=== PATIENT | female | born 1940 | race Caucasian/White ===

== ENCOUNTER 2018-08-05 11:40 | Inpatient (IN) ==
--- NOTE | 2018-08-05 11:56 | Emergency Department Note ---
Disposition Clinical Impression: NSTEMI (non-ST elevated myocardial infarction) Chest pain Qualifiers: Chest pain type: unspecified Qualified Code(s): R07.9 - Chest pain, unspecified Dyspnea Qualifiers: Dyspnea type: unspecified Qualified Code(s): R06.00 - Dyspnea, unspecified Disposition: Admitted As Inpatient Condition: Good Referrals: Michelle Parekh DO [Primary Care Provider] - Forms: ED Satisfaction Letter Time of Disposition: 16:48 Chest Pain HPI - General Chief Complaint: ED Chest Pain Stated Complaint: Chest tightness,TONY Time Seen by Provider: 08/05/18 11:56 Source: patient Mode of arrival: ambulatory Limitations: no limitations Vital Signs Reviewed: Yes Nursing Notes Reviewed: Yes - History of Present Illness HPI Narrative: Patient is a 77-year-old female with past medical history of breast cancer, currently taking exemestane 25mg which is a new location for her. She is not currently on any other chemotherapy or radiation therapy. She has history of hy pertension. Denies any previous cardiac history, stent placement, previous DVT or PE. She presents today due to concern for chest tightness and shortness of breath. She states that this started yesterday, was present when she woke from sleep. Rates it a 5 out of 10, chest tightness across her entire chest. She admits to cough but no productive sputum. Denies any other fevers, nausea, vomiting, abdominal pain, dysuria, hematuria. She did admit to some swelling last night. She is concerned that this could be related to the new cancer medication that she started within the past few days. However, she states that she called her oncology office and they told this should not be causing her shortness of breath and referred her to the ER for further care. She did not take any aspirin or nitroglycerin prior to coming in. Severity scale (1-10): 5 - Related Data Home Medications Medication Instructions Recorded Confirmed Aspirin [Lo-Dose Aspirin EC] 81 mg PO DAILY 02/11/15 02/02/17 Atenolol [Tenormin] 25 mg PO DAILY 02/11/15 02/02/17 Omeprazole [PriLOSEC] 20 mg PO DAILY 02/11/15 02/02/17 hydroCHLOROthiazide 12.5 mg PO DAILY 02/11/15 02/02/17 [Hydrochlorothiazide] Vitamin B Complex [B Complex] 1 each PO DAILY 09/09/15 02/02/17 Previous Rx's Medication Instructions Recorded Albuterol Sulfate [Albuterol 2 puff IH QID 2 Days inhaler 09/09/15 Inhaler] Loratadine [Allergy Relief] 10 mg PO DAILY #30 tablet 11/14/16 Amoxicillin 875 mg PO BID #14 tablet 02/02/17 Fluticasone Propionate Nasal 120 spray NS DAILY #1 bottle 02/02/17 [Flonase] Allergies Allergy/AdvReac Type Severity Reaction Status Date / Time Iodinated Contrast- Oral and Allergy Unconscious Verified 08/05/18 13:55 IV Dye sodium pentatnol Allergy Anaphylaxis Uncoded 04/12/17 15:02 All systems ED: reviewed and negative except as stated. Constitutional: Denies: fever Cardiovascular: Reports: chest pain Respiratory: Reports: cough, dyspnea. Denies: wheezes, sputum production Gastrointestinal: Denies: abdominal pain, nausea, vomiting, diarrhea, constipation Integumentary: Denies: rash Neurological: Denies: headache, weakness, numbness, paresthesias Chest Pain PMH - Past Medical History Medical history: Reports: cancer, GERD, hypertension Surgical history: Reports: hysterectomy Psychiatric history: Reports: no psych history - Social History Smoking Status: Never smoker Alcohol use: Reports: none Drug use: Reports: none Physical Exam - General Limitations: no limitations General appearance: alert, in no apparent distress - Head Head exam: atraumatic, normocephalic, normal inspection - Eye Eye exam: Present: normal appearance, PERRL, EOMI - ENT ENT exam: normal exam, normal oropharynx, mucous membranes moist - Neck Neck exam: Present: normal inspection, full ROM, trachea midline - Chest Chest inspection: Present: normal inspection, symmetric chest wall rise - Respiratory Respiratory exam: Present: normal lung sounds bilaterally - Cardiovascular Cardiovascular exam: Present: regular rate, normal rhythm, normal heart sounds - Abdominal Exam Abdominal exam: Present: soft, Non-Tender. Absent: tenderness, distention, guarding, rebound, rigidity - Extremities Exam Extremities exam: Present: normal inspection, full ROM. Absent: tenderness, pedal edema, calf tenderness - Neurological Exam Neurological exam: Present: alert, oriented X3 - Psychiatric Psychiatric exam: Present: normal affect, normal mood - Skin Skin exam: Present: warm, dry, intact, normal color Course Course Narrative: Lungs were clear to auscultation, heart regular rate and rhythm, abdomen soft and nontender. She has no pitting edema of the lower extremities, no calf tenderness. She does appear to be short of breath on exam. She does have a cancer history. With cancer history, there is concern that patient could have a PE. She is otherwise low risk. We will perform d-dimer. If this is positive, we will proceed with further CTA of the chest for further assessment. O therwise, we will give the patient aspirin and nitroglycerin. Her current chest pain is a 5 out of 10. We will perform EKG, chest x-ray, basic blood work and troponin level. She has no cardiac history. No previous NC or stent placement. 15:00 patient had elevated d-dimer level and elevated troponin level 0.08. She was started given aspirin. Did not start heparin at this time as we need to scan her chest to assess for PE. There would be a difference in dosing between standard dose for PE versus low-dose ACS heparin. We will hold heparin until he get CTA back. CTA is currently pending due to patient reportedly having a contrast allergy. She does state that she has received a contrast study before but received pretreatment beforehand. Patient is given Benadryl and Solu- Medrol, plan to scan the patient 1 hour after pretreatment. 16:44 CTA negative for PE. We will start the patient on low-dose ACS heparin. No recent bleeding issues/contraindications. She has been given aspirin. We will admit for further care for NSTEMI. Chest X-Ray 08/05/18 11:55 IMPRESSION: No acute findings in the chest. D/ / Bobby Garber MD / Bobby Garber MD Interpreting Provider: Bobby Garber MD Chest CTA 08/05/18 12:49 IMPRESSION: 1. No findings of pulmonary embolism. 2. Patchy bronchial secretions with minimal to mild bronchial wall thickening suggesting bronchitis. 3. Mosaic attenuation in the lungs potentially due to small airways disease or small vessels disease. 4. Expected post-treatment changes in the left breast with no findings to suggest recurrence. 5. Unchanged solid nodules in the bilateral lower lobes measure up to 0.7 cm x 0.5 cm. Benign sequelae of an infectious or inflammatory process remain favored over metastatic disease. Recommend attention on follow-up imaging. D/ / Bobby Garber MD / Bobby Garber MD Interpreting Provider: Bobby Garber MD Vital Signs Temperature 97.8 F 08/05/18 11:46 Pulse Rate 73 08/05/18 11:46 Respiratory Rate 18 08/05/18 11:46 Blood Pressure 167/102 08/05/18 11:46 O2 Sat by Pulse Oximetry 100 08/05/18 11:46 Temperature 97.8 F 08/05/18 11:46 Pulse Rate 68 08/05/18 13:52 Respiratory Rate 18 08/05/18 13:52 Blood Pressure 152/88 08/05/18 13:52 O2 Sat by Pulse Oximetry 100 08/05/18 13:52 Oxygen Delivery Oxygen Delivery Room Air Chest Pain - MDM Narrative Medical decision making narrative: Lungs were clear to auscultation, heart regular rate and rhythm, abdomen soft and nontender. She has no pitting edema of the lower extremities, no calf tenderness. She does appear to be short of breath on exam. She does have a cancer history. With cancer history, there is concern that patient could have a PE. She is otherwise low risk. We will perform d-dimer. If this is positive, we will proceed with further CTA of the chest for further assessment. Otherwise, we will give the patient aspirin and nitroglycerin. Her current chest pain is a 5 out of 10. We will perform EKG, chest x-ray, basic blood work and troponin level. She has no cardiac history. No previous NC or stent placement. 15:00 patient had elevated d-dimer level and elevated troponin level 0.08. She was started given aspirin. Did not start heparin at this time as we need to scan her chest to assess for PE. There would be a difference in dosing between standard dose for PE versus low-dose ACS heparin. We will hold heparin until he get CTA back. CTA is currently pending due to patient reportedly having a contrast allergy. She does state that she has received a contrast study before but received pretreatment beforehand. Patient is given Benadryl and Solu- Medrol, plan to scan the patient 1 hour after pretreatment. 16:44 CTA negative for PE. We will start the patient on low-dose ACS heparin. She has been given aspirin. We will admit for further care for NSTEMI. - Medical Records Medical records reviewed: Yes I reviewed the patient's medical records. - Lab Data Lab results reviewed: Yes I reviewed the patient's lab results. Result diagrams: 08/05/18 12:05 08/05/18 12:05 Lab Results 08/05/18 08/05/18 08/05/18 Range/Units 12:05 12:05 12:05 WBC 4.7 (4.3-11.1) K/mcL RBC 4.26 (3.82-4.97) M/mcL Hgb 12.5 (11.5-15.4) g/dL Hct 37.1 (35.3-44.9) % MCV 87.1 (83.0-100.0) fL MCH 29.3 (28.0-33.3) pg MCHC 33.7 (31.6-35.5) g/dL RDW 13.1 (11.5-14.5) % Plt Count 192 (140-400) K/mcL MPV 9.8 (9.4-12.4) fL Immature Gran % 0.4 (0-4) % Seg Neutrophils % 81.7 % Lymphocytes % 10.1 % Monocytes % 6.3 % Eosinophils % 1.1 % Basophils % 0.4 % Neutrophils # 3.9 (1.6-8.9) K/mcL Lymphocytes # 0.5 L (0.6-4.6) K/mcL Monocytes # 0.3 (0.0-1.3) K/mcL Eosinophils # 0.1 (0.0-0.6) K/mcL Basophils # 0.0 (0.0-0.2) K/mcL PT 11.6 (9.4-12.1) Seconds INR 1.0 APTT 31.1 (26.0-36.0) Seconds D-Dimer 917 H (0-500) ng/mLFEU Sodium 136 (136-145) mEq/L Potassium 3.8 (3.5-5.1) mEq/L Chloride 99 (98-107) mEq/L Carbon Dioxide 27 (23-29) mEq/L BUN 21 (8-23) mg/dL Creatinine 0.90 (0.60-1.20) mg/dL Est GFR ( Amer) > 60 (> 60) Est GFR (Non-Af Amer) > 60 (> 60) BUN/Creatinine Ratio 23 (6-26) Glucose 86 (70-105) mg/dL Calculated Osmolality 284 (280-300) Calcium 9.9 (8.6-10.3) mg/dL Troponin I 0.08 H* (< 0.04) ng/mL - Radiology Data Radiology results reviewed: Yes I reviewed the patient's radiology results. - EKG Data EKG attestation: Yes I reviewed and interpreted this EKG. EKG results narrative: EKG. 08/05/2018 at 10:57. Normal sinus rhythm. Rate 88. QRS 90. QTC 420. Normal axis. No acute ST elevation or depression. S.B.A.R. - S.B.A.R. Situation: Demographics, MOA Background: Presenting Complaint, Relevant PMH, Meds, & Allergies Assessment: Vital Signs, Course and respsone to treatment, Exam Concerns, Patient/Family Expectation, Pertinant Lab Results Recommendation: Barrier(s) to disposition, Recommendation based on pending studies, treatments, or consults S.B.A.R. Report Given to: Dr. Herrera Attestation Statement - Attestation Attestation: I examined this patient and my medical decision-making was reviewed with the Resident Physician. I agree with the documented findings, disposition and treatment plan as described except to the extent set forth below. [id number] time provided Patient reports chest tightness that radiates to her left upper extremity. She also feels dyspneic. She appears in no acute distress on exam. ECG upon arrival reviewed by me
[2018-08-05] MEDS ORDERED: Aspirin 325 MG TABLET PO ONE (12:02)
[2018-08-05] MEDS ORDERED: Nitroglycerin 0.4 MG TAB.SUBL SL PRN (12:02)
[2018-08-05 12:29] LABS: Basophils % 0.4 %; Eosinophils # 0.1 K/mcL (0.0-0.6); Eosinophils % 1.1 %; Hematocrit 37.1 % (35.3-44.9); Hemoglobin 12.5 g/dL (11.5-15.4); Immature Granulocytes % 0.4 % (0-4); Lymphocytes # 0.5 K/mcL (0.6-4.6); Lymphocytes % 10.1 %; Mean Corpuscular HGB Conc 33.7 g/dL (31.6-35.5); Mean Corpuscular Hemoglobin 29.3 pg (28.0-33.3); Mean Corpuscular Volume 87.1 fL (83.0-100.0); Mean Platelet Volume 9.8 fL (9.4-12.4); Monocytes # 0.3 K/mcL (0.0-1.3); Monocytes % 6.3 %; Neutrophils # 3.9 K/mcL (1.6-8.9); Platelet Count 192 K/mcL (140-400); Red Blood Count 4.26 M/mcL (3.82-4.97); Red Cell Distribution Width 13.1 % (11.5-14.5); Segmented Neutrophils % 81.7 %
[2018-08-05 12:37] LABS: Prothrombin Time 11.6 Seconds (9.4-12.1)
[2018-08-05 12:40] LABS: Activated Partial Thrombo Time 31.1 Seconds (26.0-36.0)
[2018-08-05] MEDS ORDERED: Isovue-370 500 ML BOTTLE IVP ONE (12:49)
[2018-08-05 12:52] LABS: BUN/Creatinine Ratio 23 (6-26); Blood Urea Nitrogen 21 mg/dL (8-23); Calcium 9.9 mg/dL (8.6-10.3); Carbon Dioxide 27 mEq/L (23-29); Chloride 99 mEq/L (98-107); Glucose 86 mg/dL (70-105); Osmolality,Calculated 284 (280-300); Potassium 3.8 mEq/L (3.5-5.1); Sodium 136 mEq/L (136-145); eGFR For Non-African Americans > 60 (> 60)
[2018-08-05 13:04] LABS: Troponin I 0.08 ng/mL (< 0.04)
--- NOTE | 2018-08-05 13:08 | Emergency Department Note ---
Disposition Clinical Impression: Chest pain, Dyspnea, NSTEMI (non-ST elevated myocardial infarction) Disposition: Admitted As Inpatient Condition: Good General Adult HPI - General Chief complaint: ED Chest Pain Stated complaint: Chest tightness,TONY Time Seen by Provider: 08/05/18 11:56 Source: patient Mode of arrival: ambulatory Limitations: no limitations - History of Present Illness Pain Scale: 0 - Related Data Home Medications Medication Instructions Recorded Confirmed Aspirin [Lo-Dose Aspirin EC] 81 mg PO DAILY 02/11/15 02/02/17 Atenolol [Tenormin] 25 mg PO DAILY 02/11/15 02/02/17 Omeprazole [PriLOSEC] 20 mg PO DAILY 02/11/15 02/02/17 hydroCHLOROthiazide 12.5 mg PO DAILY 02/11/15 02/02/17 [Hydrochlorothiazide] Vitamin B Complex [B Complex] 1 each PO DAILY 09/09/15 02/02/17 Previous Rx's Medication Instructions Recorded Albuterol Sulfate [Albuterol 2 puff IH QID 2 Days inhaler 09/09/15 Inhaler] Loratadine [Allergy Relief] 10 mg PO DAILY #30 tablet 11/14/16 Amoxicillin 875 mg PO BID #14 tablet 02/02/17 Fluticasone Propionate Nasal 120 spray NS DAILY #1 bottle 02/02/17 [Flonase] Allergies Allergy/AdvReac Type Severity Reaction Status Date / Time Iodinated Contrast- Oral and Allergy Unconscious Verified 08/05/18 13:55 IV Dye sodium pentatnol Allergy Anaphylaxis Uncoded 04/12/17 15:02 Constitutional: Denies: fever Cardiovascular: Reports: chest pain Respiratory: Reports: cough, dyspnea. Denies: wheezes, sputum production Gastrointestinal: Denies: abdominal pain, nausea, vomiting, diarrhea, const ipation Integumentary: Denies: rash Neurological: Denies: headache, weakness, numbness, paresthesias Past Medical History - Past Medical History Medical history: Reports: cancer, GERD, hypertension Surgical history: Reports: hysterectomy Psychiatric history: Reports: no psych history - Social History Smoking Status: Never smoker Smokeless Tobacco Status: No Alcohol use: Reports: none Drug use: Reports: none Physical Exam - General Limitations: no limitations General appearance: alert, in no apparent distress Course Vital Signs Temperature 97.8 F 08/05/18 11:46 Pulse Rate 73 08/05/18 11:46 Respiratory Rate 18 08/05/18 11:46 Blood Pressure 167/102 08/05/18 11:46 O2 Sat by Pulse Oximetry 100 08/05/18 11:46 Temperature 97.8 F 08/05/18 11:46 Pulse Rate 68 08/05/18 13:52 Respiratory Rate 18 08/05/18 13:52 Blood Pressure 152/88 08/05/18 13:52 O2 Sat by Pulse Oximetry 100 08/05/18 13:52 Oxygen Delivery Oxygen Delivery Room Air Medical Decision Making - Lab Data Result diagrams: 08/05/18 12:05 08/05/18 12:05 Lab Results 08/05/18 08/05/18 08/05/18 Range/Units 12:05 12:05 12:05 WBC 4.7 (4.3-11.1) K/mcL RBC 4.26 (3.82-4.97) M/mcL Hgb 12.5 (11.5-15.4) g/dL Hct 37.1 (35.3-44.9) % MCV 87.1 (83.0-100.0) fL MCH 29.3 (28.0-33.3) pg MCHC 33.7 (31.6-35.5) g/dL RDW 13.1 (11.5-14.5) % Plt Count 192 (140-400) K/mcL MPV 9.8 (9.4-12.4) fL Immature Gran % 0.4 (0-4) % Seg Neutrophils % 81.7 % Lymphocytes % 10.1 % Monocytes % 6.3 % Eosinophils % 1.1 % Basophils % 0.4 % Neutrophils # 3.9 (1.6-8.9) K/mcL Lymphocytes # 0.5 L (0.6-4.6) K/mcL Monocytes # 0.3 (0.0-1.3) K/mcL Eosinophils # 0.1 (0.0-0.6) K/mcL Basophils # 0.0 (0.0-0.2) K/mcL PT 11.6 (9.4-12.1) Seconds INR 1.0 APTT 31.1 (26.0-36.0) Seconds D-Dimer 917 H (0-500) ng/mLFEU Sodium 136 (136-145) mEq/L Potassium 3.8 (3.5-5.1) mEq/L Chloride 99 (98-107) mEq/L Carbon Dioxide 27 (23-29) mEq/L BUN 21 (8-23) mg/dL Creatinine 0.90 (0.60-1.20) mg/dL Est GFR ( Amer) > 60 (> 60) Est GFR (Non-Af Amer) > 60 (> 60) BUN/Creatinine Ratio 23 (6-26) Glucose 86 (70-105) mg/dL Calculated Osmolality 284 (280-300) Calcium 9.9 (8.6-10.3) mg/dL Troponin I 0.08 H* (< 0.04) ng/mL Critical Care Time Critical Care Time: Yes Total Critical Care Time: 30 Attestation: The high probability of a clinically significant, sudden or life threatening deterioration of the [] system(s) required my full and direct attention, int ervention and personal management. The aggregate critical care time was [] minutes. This time is in addition to time spent performing reported procedures but includes the following: [] Data Review and interpretation [] Patient assessment and monitoring of vital signs [] Documentation [] Medication orders and management Attestation Statement - Attestation Attestation: I examined this patient and my medical decision-making was reviewed with the Resident Physician. I agree with the documented findings, disposition and treatment plan as described except to the extent set forth below. [id number] time provided Patient presents with chest tightness radiating to her left upper extremity. She appears in no acute distress on exam. ECG reviewed by me upon arrival. CT chest ordered. Troponin results positive. We will initiate heparin infusion
[2018-08-05] MEDS ORDERED: *HR* FentaNYL (PF) 100 MCG/2 ML VIAL IVP ONE (13:11)
[2018-08-05] MEDS ORDERED: methylPREDNISolone 125 MG/2 ML VIAL IVP ONE (13:49)
[2018-08-05] MEDS ORDERED: *HR* Heparin 5,000 UNIT/ML VIAL IVP ONE (16:41)
[2018-08-05] MEDS ORDERED: *HR* Heparin 5,000 UNIT/ML VIAL IVP PRN ×2 (16:41)
[2018-08-05] MEDS ORDERED: Heparin 25,000 UNIT/500 ML D5W 25,000 UNIT/500 ML BAG IVC SCH (16:45)
[2018-08-05] MEDS ORDERED: Acetaminophen 325 MG TABLET PO PRN (17:36)
--- NOTE | 2018-08-05 17:54 | Internal Med History&Physical ---
Date of Encounter: 08/05/18 Time of Encounter: 17:52 Internal Medicine - H&P: HPI Chief complaint: chest pain Admitted From: Home Plans for Post Hospital Care: Home History of present illness: Ms. Tan is a 77 year old female with history of breast cancer status post chemoradiation, hypertension, GERD presented to the emergency department with complaint of chest tightness. As per patient her chest tightness began the day before presentation to the emergency department. It was right after she woke up and she was walked the bathroom where she experienced sudden onset of chest tightness so she took 1 baby aspirin with some relief. She reports that she does not have chest pain however her chest feels tight bilaterally, its nonradiating, 5 out of 10 on severity. She has never had any symptoms like this before and since the chest tightness was constant she decided to come to the emergency department for further evaluation. She was recently started on exemestane 25mg by her oncologist at [facility] and was won dering if its due to cristin medication, she called [facility] pharmacy adn was told to stop the medication so she has not taken it for the past 2 days. her oncologist was contacted by the patient who told her that the medication does not cause chest pain and advised her to come to the nearest ED. She denies fever, chills, nausea, vomiting, diarrhea, palpitation, syncope, headache, loss of vision, leg swelling, PND, orthopnea. On the emergency department troponin was found to be 0.08 she was started on heparin drip for non-STEMI and was endorsed for admission for further management. Past Med Surg Social Fam HX - Past Medical History Medical history: cancer, GERD, hypertension Additional medical history: Breast CA. Colon CA Psychiatric history: no psych history - Past Surgical History Surgical History: hysterectomy Additional surgical history: Breast surgery. Bowel resection - Social History Smoking Status: Never smoker Smokeless Tobacco Status: No Alcohol use: none Drug use: none Internal Medicine - H&P: Meds Aspirin [Lo-Dose Aspirin EC] 81 mg PO DAILY 02/11/15 [History] Atenolol [Tenormin] 25 mg PO DAILY 02/11/15 [History] Omeprazole [PriLOSEC] 20 mg PO DAILY 02/11/15 [History] hydroCHLOROthiazide [Hydrochlorothiazide] 12.5 mg PO DAILY 02/11/15 [History] Albuterol Sulfate [Albuterol Inhaler] 2 puff IH QID 2 Days inhaler 09/09/15 [Rx] Vitamin B Complex [B Complex] 1 each PO DAILY 09/09/15 [History] Loratadine [Allergy Relief] 10 mg PO DAILY #30 tablet 11/14/16 [Rx] Amoxicillin 875 mg PO BID #14 tablet 02/02/17 [Rx] Fluticasone Propionate Nasal [Flonase] 120 spray NS DAILY #1 bottle 02/02/17 [Rx] Allergy/AdvReac Type Severity Reaction Status Date / Time Iodinated Contrast- Oral and Allergy Unconscious Verified 08/05/18 13:55 IV Dye sodium pentatnol Allergy Anaphylaxis Uncoded 04/12/17 15:02 All Systems PM: A 10-system review of systems was performed and is negative for pertinent findings except as documented above in the HPI. - Constitutional Vitals: Temp Pulse Resp BP Pulse Ox 97.8 F 71 16 168/92 98 08/05/18 11:46 08/05/18 16:41 08/05/18 16:41 08/05/18 16:41 08/05/18 16:41 Exam: General: Patient is alert, oriented, no acute distress, speaks in full sentences Head: atraumatic, normocephalic, Eye: normal appearance, PERRL, no scleral icterus, no conjunctival injection ENT: mucous membranes moist, normal external ear exam Neck: normal inspection, trachea midline, full ROM, no carotid bruits Chest: normal inspection, symmetric chest rise, mastectomy Respiratory: Good respiratory effort. Bilateral breath sounds are clear without wheezing, crackles, or rhonchi. Cardiovascular: Regular rate and rhythm. s1 and s2 No clicks, rubs, gallops, or murmors. Abdomen: Bowel sounds present normoactive x-4 quadrants. Abdomen is soft, nondistended. no Epigastric tenderness. No guarding or rebound. No organomegaly noted, obese musculoskeletal: Spontaneously moving all extremities. no edema, no calf tenderness Skin: warm, dry, intact. Neuro: Alert and oriented x4. No focal deficit Psych: Patient's affect is normal Internal Med - H&P Results - Labs CBC & Chem 7: 08/05/18 12:05 08/05/18 12:05 Labs: Short CBC 08/05/18 Range/Units 12:05 WBC 4.7 (4.3-11.1) K/mcL Hgb 12.5 (11.5-15.4) g/dL Hct 37.1 (35.3-44.9) % Plt Count 192 (140-400) K/mcL Neutrophils # 3.9 (1.6-8.9) K/mcL BMP 08/05/18 12:05 Sodium 136 Potassium 3.8 Chloride 99 Carbon Dioxide 27 BUN 21 Creatinine 0.90 Glucose 86 Calcium 9.9 Cardiac Enzymes 08/05/18 Range/Units 12:05 Troponin I 0.08 H* (< 0.04) ng/mL - EKG Data -: EKG Interpreted by Myself (Normal sinus rhythm, with sinus arrhythmia QT of 414) - Impressions ITS Impressions Chest X-Ray 08/05/18 11:55 IMPRESSION: No acute findings in the chest. D/ / Bobby Garber MD / Bobby Garber MD Interpreting Provider: Bobby Garber MD Chest CTA 08/05/18 12:49 IMPRESSION: 1. No findings of pulmonary embolism. 2. Patchy bronchial secretions with minimal to mild bronchial wall thickening suggesting bronchitis. 3. Mosaic attenuation in the lungs potentially due to small airways disease or small vessels disease. 4. Expected post-treatment changes in the left breast with no findings to suggest recurrence. 5. Unchanged solid nodules in the bilateral lower lobes measure up to 0.7 cm x 0.5 cm. Benign sequelae of an infectious or inflammatory process remain favored over metastatic disease. Recommend attention on follow-up imaging. D/ / Bobby Garber MD / Bobby Garber MD Interpreting Provider: Bobby Garber MD - Assessment and plan (1) NSTEMI (non-ST elevated myocardial infarction) Current Visit: Yes Status: Acute Assessment and plan: Chest tightness most likley secondary to NSTEMI ruled out PE First troponin was 0.08 continue to follow every 6 hours along with EKG 2 D-dimer was elevated 917CTA negative for PE Cardiac monitoring Was loaded with aspirin 325 mg in the ED continue with 81 mg daily Heparin drip was initiated in the emergency department we will continue Metoprolol 25 mg twice a day Lipid panel, TSH in the morning Lipitor 40 mg every night Echocardiogram We will keep her nothing by mouth for further testing in the morning Cardiology consult NTG Q5M for chest pain (2) Hypertension Current Visit: Yes Status: Acute Assessment and plan: losartan 12.5 mg started- adjust as per BP Qualifiers: Hypertension type: unspecified Qualified Code(s): I10 - Essential (primary) hypertension (3) Breast cancer Current Visit: Yes Status: Acute Assessment and plan: s/p chemo and radiation continue medications if not CI Qualifiers: Estrogen receptor status: unspecified Patient sex: female Laterality: unspecified laterality Qualified Code(s): C50.919 - Malignant neoplasm of unspecified site of unspecified female breast (4) DVT prophylaxis Current Visit: Yes Status: Acute Assessment and plan: heparin drip - Time Spent With Patient Total time spent is greater than 50% in coordination of care (as documented) at patient's floor/unit and/or counseling patient:
[2018-08-05 18:14] LABS: Hematocrit 35.8 % (35.3-44.9); Hemoglobin 12.3 g/dL (11.5-15.4); Mean Corpuscular HGB Conc 34.4 g/dL (31.6-35.5); Mean Corpuscular Hemoglobin 29.5 pg (28.0-33.3); Mean Corpuscular Volume 85.9 fL (83.0-100.0); Mean Platelet Volume 9.8 fL (9.4-12.4); Platelet Count 182 K/mcL (140-400); Red Blood Count 4.17 M/mcL (3.82-4.97)
[2018-08-05 18:26] LABS: Prothrombin Time 11.5 Seconds (9.4-12.1)
[2018-08-05 18:34] LABS: Albumin 3.9 g/dL (3.5-5.7); Albumin/Globulin Ratio 0.9 (1.1-2.2); Bilirubin,Direct 0.1 mg/dL (0.0-0.2); Bilirubin,Indirect 0.4 mg/dL (0.0-1.2); Bilirubin,Total 0.5 mg/dL (0.3-1.0); Globulin 4.3 g/dL (2.4-3.5); Total Protein 8.2 g/dL (6.4-8.9)
[2018-08-06 01:14] LABS: Hematocrit 33.1 % (35.3-44.9); Hemoglobin 11.2 g/dL (11.5-15.4); Immature Granulocytes % 0.3 % (0-4); Lymphocytes # 0.4 K/mcL (0.6-4.6); Lymphocytes % 10.1 %; Mean Corpuscular HGB Conc 33.8 g/dL (31.6-35.5); Mean Corpuscular Hemoglobin 29.3 pg (28.0-33.3); Mean Corpuscular Volume 86.6 fL (83.0-100.0); Mean Platelet Volume 9.8 fL (9.4-12.4); Monocytes % 1.1 %; Neutrophils # 3.3 K/mcL (1.6-8.9); Platelet Count 179 K/mcL (140-400); Red Blood Count 3.82 M/mcL (3.82-4.97); Red Cell Distribution Width 12.9 % (11.5-14.5); Segmented Neutrophils % 88.5 %
[2018-08-06 02:20] LABS: BUN/Creatinine Ratio 23 (6-26); Blood Urea Nitrogen 25 mg/dL (8-23); Calcium 9.1 mg/dL (8.6-10.3); Carbon Dioxide 23 mEq/L (23-29); Chloride 101 mEq/L (98-107); Chol/HDL Ratio 5.2 (0-4.9); Cholesterol 199 mg/dL (< 200); Glucose 219 mg/dL (70-105); HDL Cholesterol 38 mg/dL (40-59); LDL Cholesterol,Calculated 147 mg/dL (0-99); Magnesium 1.8 mg/dL (1.6-2.6); Osmolality,Calculated 287 (280-300); Phosphorous 2.7 mg/dL (2.7-4.5); Potassium 3.8 mEq/L (3.5-5.1); Sodium 133 mEq/L (136-145); Triglycerides 71 mg/dL (< 150); eGFR For Non-African Americans 50 (> 60)
[2018-08-06 06:41] VITALS: BP 124/71
[2018-08-06] MEDS ORDERED: Regadenoson 0.4 MG/5 ML SYRINGE IVP ONE (08:50)
[2018-08-06] MEDS ORDERED: Aspirin Enteric Coated 81 MG Tablet PO SCH (09:00)
--- NOTE | 2018-08-06 09:40 | Cardiology Consult Note ---
<Ana Mathew - Last Filed: 08/06/18 10:57> Date of Encounter: 08/06/18 Time of Encounter: 08:00 Assessment and Plan (1) Bronchitis Status: Acute Per cardiology: -Admitted with shortness of breath also reports dry cough. -Chest CT suggestive of bronchitis. -Management per primary service. (2) Elevated troponin Status: Acute Per cardiology: -Troponins 0.08, 0.07, 0.06, 0.05 in the setting of bronchitis. -Reports some chest discomfort with typical/atypical features. -TTE with LVEF preserved, no wall motion abnormalities. -Denies current chest pain. -On asa, statin, BB, heparin drip. -ECG with normal sinus rhythm. -Demand ischemia related to above. No cardiac rehab consult warranted. -Recommend outpateint stress test, of note, follows at [facility] for oncology and wishes further work up to be done there. Discussion w patient/family: The assessment and plan as outlined above was discussed with the patient and/or family members who expressed understanding and agreement. All questions were answered. Thank you for involving us in the care of your patient. Please call with any questions. Discussed and reviewed with . History of Present Illness Consult date: 08/05/18 Requesting physician: Sharon Mario Consult reason: elevated troponin Chief complaint: shortness of breath History of present illness: Ms. Tan is a 77 year old female with a relevant past medical history of breast cancer s/p lumpectomy radiation and current hormone therapy, CKD, HTN, GERD, HLD, colon cancer, who presented to [facility] with complaints of shortness of breath. Also reported some chest heaviness. Patient states she has had a cough and was up coughing all night. Patient reports yesterday while laying in bed, she felt extremely short of breath. Reports she got up to walk to the bathroom and shortness of breath increased, also noted some chest heaviness, reported left and right chest. States had a weird feeling in her left arm also. Reported chest pain did not increase with continued activity. Denies aggravating or alleviating factors. Reports was given nitro in ER and chest heaviness got worse. Denies current chest heaviness. Past Med Surg Social Fam HX - Past Medical History Attestation: Yes The following information was validated with the patient. Source: patient, old records reviewed Medical history: cancer, GERD, hypertension Additional medical history: Breast CA. Colon CA Psychiatric history: no psych history - Past Surgical History Surgical History: hysterectomy Additional surgical history: Breast surgery. Bowel resection. knee surgery x2. hand surgery x2 - Social History Smoking Status: Never smoker Smokeless Tobacco Status: No Alcohol use: none Drug use: none - Family History Mother Hx Family Cardiac Disorders: Yes ([place]) Medications and Allergies Atenolol [Tenormin] 50 mg PO DAILY 02/11/15 [History] Omeprazole [PriLOSEC] 20 mg PO DAILY 02/11/15 [History] Vitamin B Complex [B Complex] 1 tab PO DAILY 09/09/15 [History] Exemestane [Aromasin] 25 mg PO DAILY 08/05/18 [History] Tramadol HCl [Ultram] 50 mg PO BID PRN 08/05/18 [History] Acetaminophen [Tylenol] 325 mg PO Q6H PRN 08/06/18 [History] Azithromycin [Zithromax Tri-Dony] 500 mg PO DAILY #5 tablet 08/06/18 [Rx] Multivitamin [One Daily] 1 tab PO DAILY 08/06/18 [History] [place]-3/Dha/Epa/Fish Oil [Fish Oil 1,000 mg Softgel] 1 cap PO DAILY 08/06/18 [History] Allergy/AdvReac Type Severity Reaction Status Date / Time Iodinated Contrast- Oral and Allergy Unconscious Verified 08/06/18 09:50 IV Dye sodium pentatnol Allergy Anaphylaxis Uncoded 04/12/17 15:02 All Systems Review: The remainder of the systems were reviewed and are negative - Cardiovascular Cardiovascular: as per HPI, chest pain at rest, chest pain with exertion, dyspnea at rest, dyspnea on exertion Physical Examination Vital Signs, Last 4 Hours Temp Pulse Resp BP Pulse Ox 08/06/18 06:39 97.9 F 69 16 124/71 95 General: Conversant, No Apparent Distress HEENT: Atraumatic, Normocephaly, Mucus Membranes Moist Neck: No JVD, Normal carotid pulses Cardiac: Reg Rate and Rhythm, Normal S1 and S2, No Murmur Lungs: Normal Breath Sounds, No Wheeze, Rales, Rhonchi Neuro: Alert and responsive, No focal deficits noted Abdomen: Soft, Non-Tender Skin: No rashes noted on visualized skin Musculoskeletal: No Chest Wall Tenderness Extremities: No Clubbing, No Cyanosis, No Edema, Normal Pulses Results 08/06/18 01:04 08/06/18 01:04 Lab Results 08/05/18 08/05/18 08/05/18 12:05 12:05 12:05 WBC 4.7 Hgb 12.5 Hct 37.1 Plt Count 192 INR 1.0 APTT 31.1 D-Dimer 917 H Sodium 136 Potassium 3.8 Chloride 99 Carbon Dioxide 27 BUN 21 Creatinine 0.90 Glucose 86 Calcium 9.9 Magnesium Total Bilirubin AST ALT Alkaline Phosphatase Troponin I 0.08 H* B-Natriuretic Peptide TSH 08/05/18 08/05/18 08/05/18 17:46 17:46 17:46 WBC 5.1 Hgb 12.3 Hct 35.8 Plt Count 182 INR 1.0 APTT D-Dimer Sodium Potassium Chloride Carbon Dioxide BUN Creatinine Glucose Calcium Magnesium Total Bilirubin 0.5 AST 21 ALT 12 Alkaline Phosphatase 69 Troponin I B-Natriuretic Peptide TSH 08/05/18 08/05/18 08/06/18 17:46 23:28 01:04 WBC 3.7 L Hgb 11.2 L Hct 33.1 L Plt Count 179 INR APTT D-Dimer Sodium Potassium Chloride Carbon Dioxide BUN Creatinine Glucose Calcium Magnesium Total Bilirubin AST ALT Alkaline Phosphatase Troponin I 0.07 H* 0.06 H* B-Natriuretic Peptide TSH Impressions Chest X-Ray 08/05/18 11:55 IMPRESSION: No acute findings in the chest. D/ / Bobby Garber MD / Bobby Garber MD Interpreting Provider: Bobby Garber MD Chest CTA 08/05/18 12:49 IMPRESSION: 1. No findings of pulmonary embolism. 2. Patchy bronchial secretions with minimal to mild bronchial wall thickening suggesting bronchitis. 3. Mosaic attenuation in the lungs potentially due to small airways disease or small vessels disease. 4. Expected post-treatment changes in the left breast with no findings to suggest recurrence. 5. Unchanged solid nodules in the bilateral lower lobes measure up to 0.7 cm x 0.5 cm. Benign sequelae of an infectious or inflammatory process remain favored over metastatic disease. Recommend attention on follow-up imaging. D/ / Bobby Garber MD / Bobby Garber MD Interpreting Provider: Bobby Garber MD Echocardiogram 08/05/18 17:51 Impressions: LVEF 65%. Mild left ventricular diastolic dysfunction. Normal right ventricular structure and function. No significant valvular dysfunction. No pulmonary hypertension. Left Ventricular Wall Motion: Rest Echo Findings All wall segments showed normal motion. Findings: Study Quality * Technically adequate exam. ECG Findings * Sinus rhythm with PACs. Left Ventricle * LVEF 65%. * Normal LV chamber size, wall thickness and function. * Mild left ventricular diastolic dysfunction. Right Ventricle * Normal right ventricular structure and function. Left Atrium * Normal left atrial size. Right Atrium * Normal right atrial size. Interatrial Septum * Interatrial septum not well evaluated. Aortic Valve * Mildly calcified aortic valve leaflets. * No aortic stenosis. * No aortic regurgitation. Mitral Valve * Mild mitral annular calcification * Trace mitral regurgitation. * No mitral stenosis. Tricuspid Valve * Normal tricuspid valve structure. * No tricuspid stenosis. * Trace tricuspid regurgitation. * Estimated RVSP is 23 mmHg. * Estimated RA pressure is 3 mmHg. * No pulmonary hypertension. Pulmonic Valve * Pulmonic valve is not well visualized. * No pulmonic stenosis. * No pulmonic regurgitation. Aorta * Normally sized aortic root. Pericardium * The pericardium appears normal. IVC * The IVC is not dilated. * > 50% respiratory change Active Medications Acetaminophen (Tylenol) 650 mg PO Q6HR PRN PRN Reason: Mild Pain/Fever Stop: 02/04/19 17:37 Aspirin (Aspirin Ec) 81 mg PO DAILY [facility] Stop: 02/05/19 09:01 Atorvastatin Calcium (Lipitor) 40 mg PO HS [facility] Stop: 02/04/19 21:01 Last Admin: 08/05/18 20:23 Dose: Not Given Losartan Potassium (Cozaar) 12.5 mg PO DAILY [facility]; Protocol Stop: 02/04/19 17:51 Last Admin: 08/05/18 20:23 Dose: Not Given Metoprolol Tartrate (Lopressor) 25 mg PO BID [facility] Stop: 02/04/19 21:01 Last Admin: 08/05/18 20:22 Dose: 25 mg Nitroglycerin (Nitroglycerin) 0.4 mg SL Q5M PRN PRN Reason: Chest Pain Stop: 02/04/19 12:03 Last Admin: 08/05/18 12:28 Dose: 0.4 mg Omeprazole (Prilosec) 20 mg PO DAILY@0730 [facility]; Protocol Stop: 02/05/19 07:31 Laboratory Tests 08/05/18 08/05/18 08/05/18 12:05 17:46 23:28 WBC Hgb Creatinine Troponin I 0.08 H* 0.07 H* 0.06 H* 08/06/18 08/06/18 08/06/18 01:04 01:04 05:48 WBC 3.7 L Hgb 11.2 L Creatinine 1.07 Troponin I 0.05 H* - Imaging and Cardiology Chest Xray: report reviewed Echo: report reviewed - EKG Interpretation EKG results cardiology: other (Telemetry reveiwed with average HR previous 12 hours noted to be 73, SR. PVCs and PACs noted. Short run of atrial tachycardia noted.) Consult Discharge Plan - Plan Instructions: Azithromycin (By mouth) Referrals: [facility] [Provider Group] (Appointment has been requested. The office will contact you at home to schedule appointment for outpatient stress test. ) Michelle Parekh DO [Primary Care Provider] - (An appointment has been requested. The office will contact you at home with an appointment. ) Prescriptions: Azithromycin [Zithromax Tri-Dony] 500 mg PO DAILY #5 tablet <Stefany Sharp - Last Filed: 08/06/18 12:49> Date of Encounter: 08/06/18 - Attending Attestation Patient was was discharged before being seen by me. Findings, assessment and plan were discussed with nurse practitioner's documentation. Addition as follows, 77 yoF ho breast Ca, HLD, HTN, GERD. P/w several days of cough and dyspnea with chest heaviness which resolved after admission. Consulted for mild trop elevation 0.08 flat. PE was ruled out on CTA, possible bronchitis. No dynamic ECG changes. TTE nl EF w/o RWMA. Mild anemia, no NBA. A: Mild troponin elevation, type II or myocardial injury Bronchitis/?PNA HLD P: recommend stress test, pt prefers [facility] for further cardiac workup Stefany Sharp MD, PhD Assessment and Plan Discussion w patient/family: The assessment and plan as outlined above was discussed with the patient and/or family members who expressed understanding and agreement. All questions were answered. Thank you for involving us in the care of your patient. Please call with any questions. History of Present Illness History of present illness: Ms. Tan is a 77 year old female All Systems Review: The remainder of the systems were reviewed and are negative Results 08/06/18 01:04 08/06/18 01:04 Lab Results 08/05/18 08/05/18 08/05/18 12:05 12:05 17:46 WBC 5.1 Hgb 12.3 Hct 35.8 Plt Count 182 INR 1.0 APTT 31.1 D-Dimer 917 H Sodium 136 Potassium 3.8 Chloride 99 Carbon Dioxide 27 BUN 21 Creatinine 0.90 Glucose 86 Calcium 9.9 Magnesium Total Bilirubin AST ALT Alkaline Phosphatase Troponin I 0.08 H* B-Natriuretic Peptide [facility] 08/05/18 08/05/18 08/05/18 17:46 17:46 17:46 WBC Hgb Hct Plt Count INR 1.0 APTT D-Dimer Sodium Potassium Chloride Carbon Dioxide BUN Creatinine Glucose Calcium Magnesium Total Bilirubin 0.5 AST 21 ALT 12 Alkaline Phosphatase 69 Troponin I 0.07 H* B-Natriuretic Peptide [facility] 08/05/18 08/06/18 08/06/18 23:28 01:04 01:04 WBC 3.7 L Hgb 11.2 L Hct 33.1 L Plt Count 179 INR APTT D-Dimer Sodium 133 L Potassium 3.8 Chloride 101 Carbon Dioxide 23 BUN 25 H Creatinine 1.07 Glucose 219 H Calcium 9.1 Magnesium 1.8 Total Bilirubin AST ALT Alkaline Phosphatase Troponin I 0.06 H* B-Natriuretic Peptide TSH 08/06/18 08/06/18 08/06/18 01:04 01:04 05:48 WBC Hgb Hct Plt Count INR APTT D-Dimer Sodium Potassium Chloride Carbon Dioxide BUN Creatinine Glucose Calcium Magnesium Total Bilirubin AST ALT Alkaline Phosphatase Troponin I 0.05 H* B-Natriuretic Peptide 151 H TSH 0.576
--- NOTE | 2018-08-06 10:16 | Electrocardiograph Report ---
[place] [facility] Test Date: 2018-08-06 Pat Name: Adriana Tan Department: 113 Room: 23 Gender: F Rn Pediatric: HPSarah Beth : 1940 Requested By: Ana Mathew Order Number: [id number] Reading MD: Alberto Loza Measurements Intervals [place] Rate: 72 P: 51 ID: [id number] QRS: 4 QRSD: 86 T: 39 QT: 411 QTc: 436 Interpretive Statements SINUS RHYTHM Electronically Signed On 08-06-2018 10:14:05 EST by Alberto Loza
[2018-08-06] MEDS ORDERED: Azithromycin 500 MG in D5% in Water 250 ML IVPB SCH (11:00)
--- NOTE | 2018-08-06 11:03 | Discharge Summary ---
- NOTES TO OUTPATIENT PROVIDER Notes to Outpatient Provider: outpatient stess test next week. F/u with PCP and oncology as scheduled. Orders not resulted at time of discharge: Pending orders 08/05/18 11:55 ECG 12 lead ECG [ECG] Stat Date of Encounter: 08/06/18 Time of Encounter: 11:00 - Discharge Diagnosis (1) NSTEMI (non-ST elevated myocardial infarction) Priority: Primary Status: Ruled-out (2) Hypertension Priority: Secondary Status: Acute Qualifiers: Hypertension type: unspecified Qualified Code(s): I10 - Essential (primary) hypertension (3) Breast cancer Priority: Secondary Status: Chronic Qualifiers: Estrogen receptor status: unspecified Patient sex: female Laterality: unspecified laterality Qualified Code(s): C50.919 - Malignant neoplasm of unspecified site of unspecified female breast (4) DVT prophylaxis Priority: Primary Status: Acute (5) Elevated troponin Priority: Primary Status: Acute (6) Chest pain Priority: Primary Status: Acute Qualifiers: Chest pain type: unspecified Qualified Code(s): R07.9 - Chest pain, unspecified Hospital course: Ms. Tan is a 77 year old female with history of breast cancer status post chemoradiation, hypertension, GERD presented to the emergency department with complaint of chest tightness. As per patient her chest tightness began the day before presentation to the emergency department. It was right after she woke up and she was walked the bathroom where she experienced sudden onset of chest tightness so she took 1 baby aspirin with some relief. She reports that she does not have chest pain however her chest feels tight bilaterally, its nonradiating, 5 out of 10 on severity. She has never had any symptoms like this before and since the chest tightness was constant she decided to come to the emergency department for further evaluation. She was recently started on exemestane 25mg by her oncologist at [facility] and was wondering if its due to the medication, she called [facility] pharmacy adn was told to stop the medication so she has not taken it for the past 2 days. her oncologist was contacted by the patient who told her that the medication does not cause chest pain and advised her to come to the nearest ED. She denies fever, chills, nausea, vomiting, diarrhea, palpitation, syncope, headache, loss of vision, leg swelling, PND, orthopnea. On the emergency department troponin was found to be 0.08 she was started on heparin drip and was endorsed for admission for further management. Serial troponin was flat at 0.08, 0.07, and 0.05. EKG has no acute ST-T changes. ECHO was unremarkable. Cardiology was consulted and recommended outpt stress test. Pt will be discharged. She will be scheduled a stress test next week. Discharge discussed with: patient Time spent discussing smoking cessation with patient: more than 10 minutes - Time Spent with Patient Total time spent providing and/or coordinating discharge services: Greater than 30 minutes - Discharge Medications Prescriptions: New Azithromycin [Zithromax Tri-Dony] 500 mg PO DAILY #5 tablet Continue Atenolol [Tenormin] 50 mg PO DAILY Omeprazole [PriLOSEC] 20 mg PO DAILY Vitamin B Complex [B Complex] 1 tab PO DAILY Tramadol HCl [Ultram] 50 mg PO BID PRN PRN Reason: Pain Exemestane [Aromasin] 25 mg PO DAILY Acetaminophen [Tylenol] 325 mg PO Q6H PRN PRN Reason: Mild To Moderate Pain [place]-3/Dha/Epa/Fish Oil [Fish Oil 1,000 mg Softgel] 1 cap PO DAILY Multivitamin [One Daily] 1 tab PO DAILY Home Medications: Atenolol [Tenormin] 50 mg PO DAILY 02/11/15 [History] Omeprazole [PriLOSEC] 20 mg PO DAILY 02/11/15 [History] Vitamin B Complex [B Complex] 1 tab PO DAILY 09/09/15 [History] Exemestane [Aromasin] 25 mg PO DAILY 08/05/18 [History] Tramadol HCl [Ultram] 50 mg PO BID PRN 08/05/18 [History] Acetaminophen [Tylenol] 325 mg PO Q6H PRN 08/06/18 [History] Azithromycin [Zithromax Tri-Dony] 500 mg PO DAILY #5 tablet 08/06/18 [Rx] Multivitamin [One Daily] 1 tab PO DAILY 08/06/18 [History] [place]-3/Dha/Epa/Fish Oil [Fish Oil 1,000 mg Softgel] 1 cap PO DAILY 08/06/18 [History] Allergies/Adverse Reactions: Allergy/AdvReac Type Severity Reaction Status Date / Time Iodinated Contrast- Oral and Allergy Unconscious Verified 08/06/18 09:50 IV Dye sodium pentatnol Allergy Anaphylaxis Uncoded 04/12/17 15:02 Date of admission: 08/06/18 09:26 Primary care physician: Salvador [place] Consults: 08/05/18 18:05 Consult to Cardiology [CONS] Routine Comment: Consulting Provider: [facility] Reason for Consult: NSTEMI Call Completed: No Anticipated date of discharge: 08/06/18 - Constitutional Vitals: Temp Pulse Resp BP Pulse Ox 97.9 F 69 16 124/71 95 08/06/18 06:39 08/06/18 06:39 08/06/18 06:39 08/06/18 06:39 08/06/18 06:39 General appearance: Present: A&O X 3 Exam: PHYSICAL EXAMINATION: GENERAL APPEARANCE: The patient is alert, oriented and in no acute distress. HEENT: Head is normocephalic. The sinuses are nontender. Pupils are equal and reactive. The nares are patent. Oropharynx clear without lesions. NECK: Supple without lymphadenopathy. HEART: Regular rate and rhythm. LUNGS: No crackles or wheezes are heard. ABDOMEN: Soft, nontender, nondistended with good bowel sounds heard. Inguinal area is normal. EXTREMITIES: Without cyanosis, clubbing or edema. NEUROLOGICAL: Gross nonfocal. SKIN: Warm and dry without any rash. - Patient Status Disposition: Home, Self-Care Condition: Good Functional capacity at discharge: independent ambulation Overall status at discharge: patient is progressing back to baseline - Discharge Instructions Follow Up With: Michelle Parekh DO [Primary Care Provider] - - Diet and Activity Activity: resume usual activities as tolerated Diet: advance to your usual diet
--- NOTE | 2018-08-06 20:58 | Electrocardiograph Report ---
[place] [id number] Test Date: 2018-08-06 Pat Name: Adriana Tan Department: 113 Room: 23 Gender: F Back Hoe Operator: BRANDON : 1940 Requested By: Cynthia Castro Order Number: [id number] Reading MD: Stefany Sharp Measurements Intervals [place] Rate: 72 P: 65 [place]: 187 QRS: 5 QRSD: 90 T: 23 QT: 412 QTc: 436 Interpretive Statements SINUS RHYTHM Electronically Signed On 08-06-2018 20:56:38 EST by Stefany Sharp
== END 2018-08-06 12:11 | disposition home or self-care (01) | DRG 313 ==
LOC: EMEROOARM 11:40 → 3BNU 11:40
PROVIDERS: ADMIT Internal Medicine; ATTEND Internal Medicine